=== PATIENT | male | born 1950 | race Caucasian/White ===

== ENCOUNTER 2017-03-17 07:54 | Day surgery (SDC) | payer OTHER ==
--- NOTE | 2017-03-03 08:17 | HP ---
CC: Dr. Jesús Segal * HISTORY AND PHYSICAL: DATE OF PLANNED ADMISSION AND SURGERY: 03/17/17 HISTORY OF PRESENT ILLNESS: Mr. Harvey is a 66-year-old white male who is admitted with suspicious bladder lesions for cystoscopy and excisional biopsies. I have been following Mr. Harvey since 1994 because of history of bladder tumors. 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 He had another recurrence in 2003 and at that time he received a 6-weeks' course of intravesical BCG. Since that time, he had been followed with periodic cystoscopies and the only abnormal finding was slight irregularity of the mucosa in the area of the right trigone. He has remained asymptomatic. He had his yearly surveillance cystoscopy earlier this month and there was a new finding of a flat hyperemic lesion in the right base of the bladder that was suspicious for flat transitional cell carcinoma. The patient is admitted for cystoscopy and bladder biopsies. Past urological history is otherwise negative. He has no significant obstructive voiding symptoms. He denies any episodes of gross hematuria or urinary tract infections. He is not bothered by his voiding. PAST MEDICAL HISTORY: He is in good health. He had a renal ultrasound last year and the only findings were bilateral simple renal cysts. MEDICATIONS: His only medication is omeprazole and muscle relaxant for his back. ALLERGIES: He reports having intolerance or allergy to ZITHROMAX. REVIEW OF SYSTEMS: He denies any cardiac or pulmonary diseases or symptoms. PHYSICAL EXAMINATION GENERAL: Pleasant, moderately overweight white male who looks his age. VITAL SIGNS: Blood pressure 130/80, pulse of 60. HEART: Regular and rhythmic. No murmurs. LUNGS: Clear. ABDOMEN: Soft, no masses, no tenderness and no CVA tenderness. EXTERNAL GENITALIA: Normal. RECTAL: Shows a moderately enlarged but non-suspicious prostate. IMPRESSION: Past history of bladder tumors with the new finding of a flat hyperemic irregular lesion measuring about 1 cm in the right face of the bladder and some irregularity of the bladder mucosa adjacent to the right ureteral orifice. PLAN: Cystoscopy and excisional biopsies of bladder lesions. I discussed the above plans with the patient. All his questions were answered. [id number]/CPS #: [id number] [facility]
[~2017-03-17 07:54] MED LIST: Acetaminophen TAB* 325 MG ONE; Acetaminophen TAB* 325 MG PO ONE; Buffered Lidocaine 0.9% SYRIN* 5 ML/SYR SYRINGE INTRADERM ONE; Dexamethasone IV* 4 MG/ML 1 ML (4 MG) IV SLOW PU ONE; Dexamethasone IV* 4 MG/ML 1 ML (4 MG) ONE; Famotidine IV* 10 MG/ML 2 ML (20 mg) IV ONE; Famotidine IV* 10 MG/ML 2 ML (20 mg) ONE; cefTRIAXone(*) 2 GM ADDV.VIAL IVPB ONE
[2017-03-17] MEDS ORDERED: Midazolam* 1 MG/ML 2 ML VIAL (2 MG) ONE (09:15)
[2017-03-17] MEDS ORDERED: fentaNYL* 50 MCG/ML 2 ML VIAL (100 MCG VIAL) ONE (09:15)
[2017-03-17] MEDS ORDERED: Propofol* 10 MG/ML 20 ML BTL IV PUSH ONE (09:15)
[2017-03-17] MEDS ORDERED: Lidocaine 2% PF * 5 ML VIAL ONE (09:15)
[2017-03-17] MEDS ORDERED: Ketorolac INJ* 30 MG/ML 1 ML VIAL IV PRN (10:00)
[2017-03-17] MEDS ORDERED: Ondansetron INJ* 2 MG/ML VIAL IV PRN (10:00)
[2017-03-17] MEDS ORDERED: oxyCODONE TAB* 5 MG TAB PO PRN (10:00)
[2017-03-17] MEDS ORDERED: fentaNYL* 50 MCG/ML 2 ML VIAL (100 MCG VIAL) IV PRN (10:00)
[2017-03-17] MEDS ORDERED: HYDROmorphone INJ* 1 MG/ML CARPUJECT SYRINGE IV PRN (10:00)
[2017-03-17] MEDS ORDERED: oxyCODONE/Acetamin 5/325 MG* TAB PO PRN (10:42)
[2017-03-17] MEDS ORDERED: mitoMYcin PWD* 40 MG in Sterile Water for Inj* 40 ML IRRIGATION ONE (11:45)
[2017-03-17 12:56] VITALS: BP 139/96
--- NOTE | 2017-03-18 03:39 | OP ---
CC: Dr. Jesús Segal * DATE OF OPERATION: 03/17/17 - [facility] DATE OF : 50 SURGEON: Alec Garcia MD ANESTHESIOLOGIST: Dottie Charles MD ANESTHESIA: General. PRE-OP DIAGNOSES: 1. Past history of bladder tumors. 2. Suspicious lesions, right base and right trigone. POST-OP DIAGNOSES: 1. Past history of bladder tumors. 2. Suspicious lesions, right base and right trigone. OPERATIVE PROCEDURE: 1. Cystoscopy. 2. Biopsies and fulguration of multiple flat bladder lesions of right base of bladder and right trigone. INDICATIONS: Mr. 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 He had one recurrence in 2003 and received intravesical BCG. He has been followed with yearly surveillance cystoscopies. His last cystoscopy showed new hyperemic lesions in the right base of the bladder and in the right trigone. Because of these findings, the patient admitted for bladder biopsies. PATHOLOGY AT CYSTOSCOPY: The penile and bulbar urethrae looked normal. The prostatic urethra was short and open with minimal obstruction. Examination of the bladder showed normal ureteral orifices. There was scarring in the right base of the bladder from previous bladder biopsies and fulgurations. There were flat, irregular hyperemic lesions located in the right base of the bladder superior to the Rt orifice and the trigone. There were also similar lesions distal to the trigone and the orifice closer to the bladder neck. The lesions were flat, looked mostly mucosal and superficial. They were nonpapillary. They represent either inflammatory changes, carcinoma in situ or noninvasive, flat transitional cell carcinoma. The rest of the bladder wall looked normal. There were no papillary lesions seen. No areas to suggest carcinoma in situ. No trabeculation, no calculi, and no diverticula. DESCRIPTION OF PROCEDURE: After successful general anesthesia, the patient was placed in the lithotomy position and was prepped and draped for a cystoscopy. Cystoscopy was performed. The bladder was carefully inspected and the above findings were noted. Because of the proximity of the lesions to the Rt urethral orifice, it was decided to excise them with the biopsy forceps, sparing the orifice rather than performing transurethral resection with the resectoscope, which will require stent placement. Using the biopsy forceps, multiple biopsies were obtained from the right base superior to the trigone and the Rt orifice and they were sent separately. Additional biopsies were obtained from the right trigone and the area distal to the right trigone and sent separately. The sites of the biopsies and the surrounding areas and all the suspicious residual areas were thoroughly fulgurated with a Bugbee electrode achieving very good hemostasis. At the completion of the procedure, there were no suspicious residual lesions seen. There was very good hemostasis. The right ureteral orifice was intact and clear efflux was seen coming from it. There was no bladder perforation noted. The cystoscope was then removed and size 18-Bahraini Andrew catheter was passed inside the bladder and the balloon inflated with 10 cc of water. The plan is to give the patient 1 dose of intravesical mitomycin-C in the PACU. [id number]/[facility] #: [id number] MTDD
== END 2017-03-17 13:01 | disposition home or self-care (01) ==
LOC: OR 07:54
PROVIDERS: ATTEND Urology
DX: C67.0 Malignant neoplasm of trigone of bladder (principal); K21.9 Gastro-esophageal reflux disease without esophagitis
CPT/HCPCS: 88305; A9270-GY; J0696; J1100; J2250; J2704; J3010; J9280

== ENCOUNTER 2017-09-21 07:34 | Emergency (ER) | payer OTHER ==
[2017-09-21 07:54] VITALS: BP 147/97
--- NOTE | 2017-09-21 08:00 | UC ---
Dizzy HPI HPI Summary: 66 yo male with the acute onset of vertigo about 5 AM No HOLCOMB no ear pain/ringing in ears No CP or SOB At one point he was profusely diaphoretic and his heart was racing n/v x 2 symptoms worse whne supine has bladder CA - History Of Current Complaint Chief Complaint: UCDizziness Stated Complaint: DIZZY Time Seen by Provider: 09/21/17 07:37 Hx Obtained From: Patient Onset/Duration: Sudden Onset Timing: Constant Severity Initially: Mild Severity Currently: Moderate Pain Intensity: 0 Pain Scale Used: 0-10 Numeric Character: Room Spinning Alleviating Factor(s): Nothing - worse when supine Associated Signs And Symptoms: Positive: Nausea, Vomiting, Diaphoresis, Palpitations, Unsteady Gait - Allergies/Home Medications Allergies/Adverse Reactions: Allergies Allergy/AdvReac Type Severity Reaction Status Date / Time azithromycin [From Zithromax] Allergy Rash Verified 09/21/17 07:48 PMH/Surg Hx/FS Hx/Imm Hx Previously Healthy: Yes Cancer History: Other Other Cancer History: BLADDER CA - Surgical History Surgical History: Yes Surgery Procedure, Year, and Place: 1994 TURB, 2003,. tonsillectomy, appendectomy, and gall bladder removed as a young person. REMOVED SMALL TUMORS IN BLADDER - Family History Known Family History: Negative: Cardiac Disease, Hypertension, Diabetes - Social History Alcohol Use: Occasionally Substance Use Type: None Smoking Status (MU): Former Smoker Amount Used/How Often: smoked on and off 20 years 1/2-1ppd When Did the Patient Quit Smoking/Using Tobacco: quit 25 years Review of Systems Constitutional: Negative Skin: Negative Eyes: Negative ENT: Negative Respiratory: Negative Cardiovascular: Palpitations Gastrointestinal: Vomiting, Nausea Genitourinary: Negative Motor: Negative Neurovascular: Negative Musculoskeletal: Negative Neurological: Negative Psychological: Negative Is Patient Immunocompromised?: No All Other Systems Reviewed And Are Negative: Yes Physical Exam Triage Information Reviewed: Yes Appearance: Well-Appearing, No Pain Distress Vital Signs: Initial Vital Signs Temp 97.5 F 09/21/17 07:44 Pulse 55 09/21/17 07:44 Resp 16 09/21/17 07:44 BP 147/97 09/21/17 07:44 Pulse Ox 99 09/21/17 07:44 Vital Signs Reviewed: Yes Eyes: Positive: Conjunctiva Clear, Other: - pupil 2-3 mm but reactive ENT: Positive: Hearing grossly normal, TMs normal. Negative: Nasal congestion, Nasal drainage, Trismus, Muffled voice, Hoarse voice, Dental tenderness Neck: Positive: Supple, Nontender, Other: - no bruit Respiratory: Positive: Lungs clear, Normal breath sounds, No respiratory distress, No accessory muscle use Cardiovascular: Positive: RRR, No Murmur, Bradycardia Abdomen Description: Positive: Nontender, No Organomegaly, CVA Tenderness (R), CVA Tenderness (L) Musculoskeletal: Positive: Strength Intact, ROM Intact, No Edema Neurological: Positive: Alert, Other: - cn2-12 intact/no nystagmus, strength 5/5 , dtrs symmetrical, gait unsteady Psychological Exam: Normal Skin Exam: Normal Diagnostics - EKG Cardiac Rate: Bradycardia Cardiac Rhythm: Sinus: Normal ST Segment: Normal - LAHB Dizzy Course/Dx - Course Course Of Treatment: Advised EMS transfer to [facility] ER as most prudent. He refused. His daughter who is a PA wishes to drive him. D/W Dr. Morillo - Differential Dx/Diagnosis Provider Diagnoses: vertigo. bradycardic Discharge - Sign-Out/Discharge Documenting (check all that apply): Discharge - Discharge Plan Condition: Guarded Disposition: TRANS HIGHER LVL OF CARE FAC Referrals: Jesús Segal MD [Primary Care Provider] - - Billing Disposition and Condition Condition: GUARDED Disposition: EMTALA
== END 2017-09-21 08:10 | disposition short-term general hospital (02) ==
LOC: UCEAST 07:34
DX: R42 Dizziness and giddiness (principal); R00.1 Bradycardia, unspecified; R11.2 Nausea with vomiting, unspecified; R26.81 Unsteadiness on feet; C67.9 Malignant neoplasm of bladder, unspecified; Z88.1 Allergy status to other antibiotic agents; Z87.891 Personal history of nicotine dependence
CPT/HCPCS: 93005; 99212; G0463

== ENCOUNTER 2017-09-21 08:26 | Observation (INO) | payer OTHER ==
[2017-09-21] MEDS ORDERED: Ondansetron INJ* 2 MG/ML VIAL IV ONE (08:35)
[2017-09-21 09:03] LABS: ABS Basophils 0 10^3/ul (0-0.2); ABS Eosinophils 0 10^3/ul (0-0.6); ABS Monocytes 0.4 10^3/ul (0-0.8); ABS Neutrophils 7.5 10^3/ul (1.5-7.7); ABS Nucleated RBC 0 10^3/ul; Eosinophil % 0.3 % (0-6); Hematocrit 43 % (42-52); Lymphocyte % 11.5 % (25-47); Mean Corpuscular HGB Conc 35 g/dl (31-36); Mean Corpuscular Hemoglobin 33 pg (27-31); Mean Corpuscular Volume 95 fL (80-94); Mean Platelet Volume 7.7 um3 (7.4-10.4); Nucleated Red Blood Cells % 0; Platelet Count 200 10^3/ul (150-450); Red Blood Count 4.57 10^6/ul (4.0-5.4); Red Cell Distribution Width 13 % (10.5-15); White Blood Count 8.9 10^3/ul (3.5-10.8)
--- NOTE | 2017-09-21 09:09 | RAD ---
INDICATION: Vomiting. Dizziness COMPARISON: July 27, 2013 TECHNIQUE: An AP portable view obtained at 0857 hours is submitted. FINDINGS: Bones/Soft Tissues: There are no acute bony findings. Cardiomediastinal: The cardiomediastinal silhouette is normal. Lungs: There are no infiltrates. Pleura: There are no pleural effusions. Other: None IMPRESSION: NO ACTIVE DISEASE.
[2017-09-21 09:15] LABS: INR 0.97 (0.77-1.02)
[2017-09-21 09:30] LABS: EGFR Non-African American 79.3 (>60)
--- NOTE | 2017-09-21 09:42 | RAD ---
INDICATION: Vertigo COMPARISON: None TECHNIQUE: Noncontrast axial source images were acquired from the skull base to the vertex. FINDINGS: Ventricles/sulci: The ventricles and cisterns are normal in size and configuration for age. Brain parenchyma: There is no focal parenchymal finding, evidence of intracranial mass, or intracranial mass effect. Intracranial hemorrhage:None. Extra-axial spaces: There are no abnormal extra axial fluid collections or evidence of extra-axial mass. Calvarium: There is no calvarial fracture or other calvarial abnormality. Scalp: There is no evidence of scalp or extracalvarial soft tissue abnormality. Paranasal sinuses/mastoid: The paranasal sinuses and mastoid air cells are clear. Other: None. IMPRESSION: No acute intracranial findings
[2017-09-21] MEDS ORDERED: Meclizine TAB* 12.5 MG PO ONE (10:57)
[2017-09-21] MEDS ORDERED: Ondansetron INJ* 2 MG/ML VIAL IV PRN (13:07)
[2017-09-21] MEDS ORDERED: Meclizine TAB* 12.5 MG PO PRN (13:07)
[2017-09-21] MEDS ORDERED: Acetaminophen TAB* 325 MG PO PRN (13:07)
[2017-09-21] MEDS ORDERED: Gadobenate* (CONTRAST) 529 MG/ML 10 ML SDV IV ONE (15:10)
--- NOTE | 2017-09-21 15:57 | RAD ---
HISTORY: Dizziness COMPARISONS: None TECHNIQUE: 3-D axial [id number]-[id number] MR angiography was performed of the head to include the [place] of [place]. Multiple 3-D maximum intensity projection reconstructions are also submitted for review. FINDINGS: RIGHT VERTEBRAL ARTERY: The distal right vertebral artery is unremarkable, without stenosis. LEFT VERTEBRAL ARTERY: The distal left vertebral artery is unremarkable, without stenosis. DOMINANCE: The vertebral arteries are codominant. DISTAL RIGHT CERVICAL INTERNAL CAROTID ARTERY: The distal right cervical internal carotid artery is unremarkable. DISTAL LEFT CERVICAL INTERNAL CAROTID ARTERY: The distal left cervical internal carotid artery is unremarkable. INTRACRANIAL CIRCULATION: There is no aneurysm, vascular malformation, occlusion, or stenosis of the visualized intracranial circulation. The anterior communicating artery complex is clear. Bilateral posterior communicating arteries are identified. OTHER FINDINGS: None IMPRESSION: NO ANEURYSM, VASCULAR MALFORMATION, OCCLUSION, OR STENOSIS OF THE VISUALIZED INTRACRANIAL CIRCULATION.
--- NOTE | 2017-09-21 16:16 | HP ---
CC: Dr. Segal; Dr. Marley * HISTORY AND PHYSICAL: DATE OF ADMISSION: 09/21/17 PRIMARY CARE PROVIDER: Dr. Segal. ATTENDING PHYSICIAN WHILE IN THE HOSPITAL: Kesha Morrell DO * (report dictated by Nilda Jin NP). CHIEF COMPLAINT: Dizziness. HISTORY OF PRESENT ILLNESS: Mr. Harvey is a 66-year-old male patient. He carries a history of bladder cancer. He comes into our emergency department today. He says that he woke up at 3 in the morning. He was feeling well. He went and made a cup of coffee. He had a couple of cups and then he was going back into his room as he was feeling tired. He noted that when he was walking down into his room, he had a sudden onset of dizziness, he felt like the room was spinning. He felt lightheaded. He became nauseated. He tried lying down hopeful this would make things better, it got a little bit better the dizziness. He was able to get up and go sit in the restroom as he felt nauseous. He had 1 episode of vomiting. He went back into his bed and when he lied down again, the dizziness got worse again. He was able to text his daughter who is a PA and then eventually call her. There was concern because his dizziness was not going away. It was going on, about 2 hours' worth of dizziness. The patient decided to go to the urgent care. He denied any trouble with vision. He said he had 2 episodes of vomiting. He said by the time he got into the ER here today, he noted that his gait was off. He said he was walking like he had too much, he said he felt very unsteady. He said over the weekend, he had a couple of episodes of dizziness like this which lasted 20 to 30 seconds, but he has never had vertigo symptoms. He denies any recent upper respiratory illnesses. No ear pain. He says that the position did not really affect this. He denied having facial drooping, slurring of the words, weakness to one side. He denied having any abdominal discomfort. No chest pain or shortness of breath. He had no calf pain or leg pain. He was concerned though because of the dizzy episode, came in to the ER, was evaluated here. The episodes by the time he was here was pretty much gone. He did get meclizine which did help him as well. There was concern because of the dizziness and the duration of it that this could represent possible TIA and we were asked to evaluate for admission. PAST MEDICAL HISTORY: Significant for bladder cancer. PAST SURGICAL HISTORY: He has had cystoscopies. HOME MEDICATIONS: 1. Vitamin B 1 tablet p.o. daily. 2. Advil 400 mg every 6 hours as needed. 3. Vitamin D 1000 units p.o. daily. ALLERGIES TO MEDICATIONS: Include AZITHROMYCIN. FAMILY HISTORY: Mother had a history of ovarian cancer, colon cancer. SOCIAL HISTORY: He is a former smoker, he quit in 1991. He does drink occasionally. Surrogate decision makers are his daughters. REVIEW OF SYSTEMS: There is no documented fever. He denied having any significant weight change. There was no double vision. There is no ear discharge. He denies having any rhinorrhea. No sore throat. No thyroid enlargement. Denies having any chest pain. There is no orthopnea. No nocturnal dyspnea. There was no abdominal pain. There was nausea with two episodes of vomiting. No dysuria, no frequency. There was no seizure, there was no loss of consciousness, no pruritus, and no skin ulcerations. Review of 14 systems completed, all others negative. PHYSICAL EXAMINATION GENERAL: At this time, Mr. Harvey is a 66-year-old male patient. He is sitting in the ED stretcher. He appears to be well nourished, well developed. He does not appear to be in any acute distress. VITAL SIGNS: Blood pressure 128/85, pulse 66, respirations 17, O2 saturation 97 %, temperature 96.3. HEENT: Head: Atraumatic, normocephalic. Eyes: EOMs are intact. Sclerae are anicteric and not pale. NECK: Supple. Throat: Oral mucosa appears to be moist. No oropharyngeal erythema. LUNGS: Clear to auscultation bilaterally. No wheezes, rales, or rhonchi. HEART: Sounds S1, S2. Regular rate and rhythm. No murmurs, rubs, or gallops. ABDOMEN: Soft, it was flat, nontender. Bowel sounds are present. EXTREMITIES: Pulses were 2+ throughout. He is moving all 4 extremities with 5/ 5 strength. NEUROLOGIC: The patient is awake, he is alert, he is oriented x3. His speech is clear. Svdkwb-hx-ligj intact bilaterally. Kmbr-qx-aefx intact bilaterally. Cranial nerves II through XII are intact. Tongue midline. No facial drooping. He had no gross focal deficits. SKIN: Intact. LABORATORY DATA/DIAGNOSTIC STUDIES: WBC of 8.9, RBC of 4.57, hemoglobin 15.0, hematocrit 43, platelet count 200,000. INR 0.97. Sodium 138, potassium 4.1, chloride 105, bicarb 25, BUN 18, creatinine 0.95, glucose 106, lactic 0.7, calcium 9.7, total bili 0.7, AST 21, ALT 22, alk phos 55. Troponin 0, repeat troponin was 0. He had an albumin of 4.6. He did have a brain CT obtained today. No acute intracranial findings were noted. He had a chest x-ray obtained today, impression: No active disease. There was EKG obtained today showing a sinus bradycardia, rate of 49, no ST elevations of T wave inversions were noted. I reviewed his previous EKG, it showed sinus bradycardia with a rate of 53. Old medical records reviewed. ASSESSMENT AND PLAN: Mr. Harvey is a 66-year-old male patient who has a history of bladder cancer only and a former smoker, coming into the ED today with complaints of dizziness. We were asked to evaluate for admission. He will be admitted under observation status for: 1. Dizziness: Etiology of this is unclear. It does sound like he has a vertigo, it is now resolved, but it is concerning how long this had lasted. My plan at this point, I did touch base with Dr. Marley who will be evaluating the patient. We will get an MRA of the head and neck in addition to his echo with bubble study. I did place the patient on aspirin. We will check lipid panel, A1c, place him on telemetry, check orthostatic blood pressures. Get an MRI of the brain with and without contrast due to the history of bladder cancer and we will continue to follow him closely. I did order neuro checks every 4 hours and we will continue to monitor. 2. History of bladder cancer: Follow with Dr. Garcia. 3. DVT prophylaxis: He will be placed on SCDs. 4. Code status: He is full code. 5. Fluid, electrolytes, nutrition. He can have a heart healthy diet. TIME SPENT: Time spent on the admission was 60 minutes, greater than half of the time was spent wqus-xa-kqlm with the patient, obtaining history and physical , the other half of the time was spent going over the plan of care with the patient and implementing the plan of care. I did discuss plan of care with my attending, Dr. Morrell, who is in agreement. NILDA JIN, PET CARETAKER [id number]/CPS #: [id number] TERA
--- NOTE | 2017-09-21 16:35 | RAD ---
INDICATION: Dizziness COMPARISON: None TECHNIQUE: Sagittal T1, axial T1, T2, susceptibility, FLAIR and diffusion-weighted images were obtained. In addition, axial, sagittal and coronal T1-weighted images were obtained following intravenous injection of 20 mL of ProHance contrast. FINDINGS: The ventricles, cisterns and sulci appear to be within normal limits. There are focal areas of increased signal intensity in T2-weighted images present within the subcortical and periventricular white matter most consistent with mild chronic small vessel ischemic changes. None of these T2 bright foci exhibit contrast enhancement on the postcontrast images. No other significant focal abnormality or mass effect is seen. No areas of restricted diffusion are present. There is no evidence for infarct or hemorrhage. The visualized portion of the paranasal sinuses and mastoid air cells appear clear. IMPRESSION: MR findings are consistent with chronic microvascular disease without acute intracranial abnormality.
--- NOTE | 2017-09-21 17:02 | RAD ---
CPT II Codes: 3100F HISTORY: Dizziness. COMPARISONS: None TECHNIQUE: The following sequences were obtained of the head and neck after localizing images: Stacked axial 2-D [id number]-[id number] MR angiography of the neck; 3-D axial [id number]-[id number]-qcdrqn MR angiography of the carotid bifurcations. Multiple 3-D maximum intensity projection reconstructions are submitted for review. Postcontrast angiographic images were acquired after the injection of 20 mL ProHance. FINDINGS: AORTA: The aortic arch is not well visualized secondary to technique and motion artifact. There is no obvious ostial or proximal stenosis of the cephalic great vessels. RIGHT VERTEBRAL ARTERY: The right vertebral artery is patent and without stenosis. There is in plane flow saturation artifact of the horizontal portion of the right vertebral artery. LEFT VERTEBRAL ARTERY: The left vertebral artery is patent, without stenosis. There is in plane flow saturation artifact of the horizontal portion of the left vertebral artery. RIGHT COMMON CAROTID ARTERY: The right common carotid artery is patent. RIGHT INTERNAL CAROTID ARTERY: Patent without large filling defect or other focal abnormality. Below the carotid bifurcation the common carotid artery measures 7 mm in diameter. At the carotid bulb the short axis diameter measurement measures just under 7 mm indicating 0% degree stenosis. LEFT COMMON CAROTID ARTERY: The left common carotid artery is patent. LEFT INTERNAL CAROTID ARTERY: Patent without large filling defect or other focal abnormality. Below the carotid bifurcation the common carotid artery measures 6 mm in diameter. At the carotid bulb the short axis diameter measurement measures just under 6 mm indicating 0% degree stenosis. IMPRESSION: 1. NORMAL NONCONTRAST MRA OF THE NECK. 2. DIAMETER MEASUREMENTS OF THE CAROTID ARTERIES INDICATE 0% DEGREE STENOSIS OF THE CAROTID BULBS ACCORDING TO [employer] CRITERIA.
[2017-09-22 06:35] LABS: ABS Basophils 0 10^3/ul (0-0.2); ABS Eosinophils 0.1 10^3/ul (0-0.6); ABS Lymphocytes 1.9 10^3/ul (1.0-4.8); ABS Monocytes 0.5 10^3/ul (0-0.8); ABS Neutrophils 3.4 10^3/ul (1.5-7.7); ABS Nucleated RBC 0 10^3/ul; Eosinophil % 1.9 % (0-6); Hematocrit 41 % (42-52); Hemoglobin 14.6 g/dl (14.0-18.0); Lymphocyte % 32.6 % (25-47); Mean Corpuscular HGB Conc 36 g/dl (31-36); Mean Corpuscular Hemoglobin 34 pg (27-31); Mean Corpuscular Volume 94 fL (80-94); Mean Platelet Volume 7.9 um3 (7.4-10.4); Nucleated Red Blood Cells % 0; Platelet Count 186 10^3/ul (150-450); Red Blood Count 4.35 10^6/ul (4.0-5.4); Red Cell Distribution Width 14 % (10.5-15); White Blood Count 5.9 10^3/ul (3.5-10.8)
[2017-09-22 06:55] LABS: EGFR Non-African American 69.1 (>60)
[2017-09-22] MEDS ORDERED: Aspirin 81 mg CHEW TAB* 81 MG TAB.CHEW PO SCH (09:00)
[2017-09-22] MEDS ORDERED: Vitamin B Complex TAB PO SCH (09:00)
[2017-09-22] MEDS ORDERED: Cholecalciferol TAB* 1000 UNITS PO SCH (09:00)
--- NOTE | 2017-09-22 12:23 | ECHO ---
Patient: VANESSA WOO [facility] Rec#: [id number] : 1950 Date: 09/22/2017 Age: 66y Height: 185.42 cm / 73.0 in Weight: 97.52 kg / 214.9 lbs Sex: M BSA: 2.22 Room#: 432 Admit Date#: 09/21/2017 Type: Inpatient Referring: Jarrett Jin NP Reading: Tanja Veras MD Captain Waiter: Gwen Sutton RDCS CC: Jesús Segal MD Transthoracic Echocardiogram Indication: Dizziness and giddiness, TIA BP: 96/55 HR: 61 Rhythm: NSR with PACs Findings History: Bladder cancer, former smoker. Technical Comments: The study quality is fair. The study is technically limited due to the patient's smoking history. Completed at 1030. Left Ventricle: The left ventricular chamber size is normal. Mild concentric left ventricular hypertrophy is observed. Global left ventricular wall motion and contractility are within normal limits. Left ventricular systolic function is at the lower limits of normal. The estimated ejection fraction is 50-55%. Abnormal left ventricular diastolic function is observed. Abnormal left ventricular diastolic filling is observed, consistent with impaired relaxation. Left Atrium: The left atrium is mildly dilated. Right Ventricle: The right ventricle is mildly dilated. The right ventricular global systolic function is normal. Right Atrium: The right atrium is moderately dilated. There is a patent foramen ovale with predominant [id number] shunting. A patent foramen ovale is demonstrated by color Doppler and agitated contrast. Aortic Valve: The aortic valve is trileaflet. The aortic valve leaflets are mildly thickened. There is no evidence of aortic regurgitation. There is no evidence of aortic stenosis. Mitral Valve: The mitral valve leaflets are mildly thickened. There is a trace of mitral regurgitation. There is no evidence of mitral stenosis. Tricuspid Valve: The tricuspid valve leaflets are normal. There is trace tricuspid regurgitation. The right ventricular systolic pressure is estimated at 22 mmHg. There is evidence that pulmonary hypertension may be underestimated. There is no tricuspid stenosis. Pulmonic Valve: The pulmonic valve appears normal. There is a trace pulmonic regurgitation. There is no pulmonic stenosis. Pericardium: There is no significant pericardial effusion. Aorta: There is mild dilatation of the ascending aorta. There is no dilatation of the aortic arch. There is mild dilatation of the aortic root. Pulmonary Artery: The main pulmonary artery appears normal. Venous: The inferior vena cava appears normal in size. There is a greater than 50% respiratory change in the inferior vena cava dimension. Contrast: Normal saline was used as contrast for the bubble study. Images 1 and 2. Intravenous contrast was used to help determine presence of intracardiac shunting. Conclusions Mild concentric left ventricular hypertrophy is observed. Global left ventricular wall motion and contractility are within normal limits. The estimated ejection fraction is 50-55%. Abnormal left ventricular diastolic filling is observed, consistent with impaired relaxation. The right ventricular global systolic function is normal. A patent foramen ovale is demonstrated by color Doppler and agitated contrast, early crossing of bubbles. The aortic valve leaflets are mildly thickened with good function. There is a trace of mitral regurgitation. There is trace tricuspid regurgitation. No prior echo to compare. Measurements Name Value Normal Range RVIDd (AP) 2D 3.5 cm (0.9 - 2.6) RVDdMajor (2D) 4.5 cm (2.2 - 4.4) RAd ISD 4CH 5.6 cm (3.4 - 4.9) RA (A4C)W 5.6 cm (2.9 - 4.6) IVSd (2D) 1.1 cm (0.6 - 1) LVPWd (2D) 1.1 cm (0.6 - 1) LVIDd (2D) 5.1 cm (3.6 - 5.4) LVIDs (2D) 3.4 cm - LV FS (2D) 34 % (25 - 45) Aortic Annulus 2.4 cm (1.4 - 2.6) Ao root diameter (2D) 3.8 cm (2.1 - 3.5) Ascending Ao 4 cm (2.1 - 3.4) Aortic arch 2.5 cm (1.8 - 3.4) LA dimension (AP) 2D 3.7 cm (2.3 - 3.8) LAd ISD 4CH 5.7 cm (2.9 - 5.3) LA ISD 4CH W 4.4 cm (2.5 - 4.5) Name Value Normal Range LA ESV SP 4CH (A/L) 65 ml - LA ESV SP 2CH (A/L) 74 ml - LA ESV BP (A/L) 74 ml - LA ESV BP (A/L) index 33 ml/m2 - LA ESV SP 4CH (MOD) 55 ml - LA ESV SP 2CH (MOD) 70 ml - Name Value Normal Range MV E-wave Vmax 0.37 m/sec - MV deceleration time 403.3 msec - MV A-wave Vmax 0.55 m/sec - MV E:A ratio 0.67 ratio - LV septal e' Vmax 0.06 m/sec - LV lateral e' Vmax 0.06 m/sec - LV E:e' septal ratio 6.17 ratio - LV E:e' lateral ratio 6.17 ratio - Name Value Normal Range AV Vmax 1.11 m/sec - AV VTI 27.54 cm - AV peak gradient 4.97 mmHg - AV mean gradient 2.69 mmHg - LVOT Vmax 0.78 m/sec - LVOT VTI 16.84 cm - LVOT peak gradient 2.47 mmHg - LVOT mean gradient 1.23 mmHg - DELMER Vmax 0.66 m/sec - Name Value Normal Range TR Vmax 2.2 m/sec - TR peak gradient 19 mmHg - RAP 3 mmHg - RVSP 22 mmHg - IVC diameter 2 cm - Name Value Normal Range PV Vmax 0.77 m/sec - PV peak gradient 2.37 mmHg -
[2017-09-22 14:44] VITALS: BP 122/81
--- NOTE | 2017-09-22 14:52 | RAD ---
HISTORY: Evaluate for DVT. No other history is provided. COMPARISONS: None relevant TECHNIQUE: Multiple transverse and longitudinal ultrasound images were obtained of the bilateral lower extremities from the level of the common femoral vein inferiorly through to the infrapopliteal veins using grayscale, color Doppler, and spectral Doppler imaging with and without compression and with augmentation. FINDINGS: VEINS: The venous system of the bilateral lower extremities is compressible throughout its course, with normal flow on color Doppler imaging and normal response to augmentation on spectral Doppler imaging. SOFT TISSUES: Unremarkable. OTHER FINDINGS: None. IMPRESSION: NO RIGHT LOWER EXTREMITY DEEP VEIN THROMBOSIS. NO LEFT LOWER EXTREMITY DEEP VEIN THROMBOSIS
--- NOTE | 2017-09-22 15:59 | CONS ---
CC: Dr. Segal * NEUROLOGY CONSULTATION: DATE OF CONSULTATION: 09/22/17 LOCATION: The patient is in 432. REQUESTING PROVIDER: Jarrett Jin NP. PRIMARY CARE DOCTOR: Dr. Segal. REASON FOR CONSULT: Vertigo. HISTORY OF PRESENT ILLNESS: Lazarus Harvey is a 66-year-old man with a history of recurrent bladder cancer, under the care of Dr. Garcia, as well as a remote history of smoking, who came into the emergency department yesterday morning with vertigo. He states that he woke up at 5 a.m. and got out of bed to make some coffee, but had been awake since 3 a.m. lying in bed. He made the coffee, went to the bathroom and urinated and then on his way back to bed he had the sudden onset of vertigo which he describes as a "psychedelic" room spinning sensation. He does not recall if the room was spinning in any particular direction and did not feel as though his eyes were moving. He did have gait unsteadiness with this as well, but was not pulled in any particular direction. He went back to bed and the most intense portion of this episode lasted about 10 minutes after which it waned, but he did not come back completely to baseline. He was able to lie on his back as the most comfortable position and then he had some subsequent episodes which were less intense than the initial episodes. These were not provoked by position changes. He did have some vomiting as well. About 30 minutes after this began, he contacted his daughter who is a physician preschool teacher assistant and then after about another hour they decided to go to urgent care, where it was recommended that he come to the ER for further evaluation. Again, he did note that his gait was unsteady and he was balancing himself on the granado when he arrived in the ER. He had essentially returned to his baseline within a couple of hours, but still felt some lightheadedness after that. Today he has a bit of a headache which he attributes to caffeine withdrawal since he did not have any caffeine yesterday nor yet today. He denies any associated dysarthria, diplopia, dysphasia with this episode. Similarly he did not have any extremity weakness or numbness. Otherwise, he denies any recent illnesses and states he has been feeling very well lately. With this episode he did have some fluttering in his chest, but denies any other episodes of palpitations, chest pain or missed beats. He has been under more stress lately as he has been going through a divorce for the past 6 to 7 years and has been living with one of his daughters for the past few years and has recently made the decision to move out into his own apartment which has caused some anxiety. He does snore at night and is not aware of any apneas. He does not feel particularly sleepy during the day. He denies any significant history of migraine headaches, though he did have some headaches for a period of about 2 years which he states was eventually attributed to excessive tobacco use as well as alcohol use, though he was never a very heavy drinker. PAST MEDICAL HISTORY: Bladder cancer diagnosed in 1991 with subsequent recurrences in the early and then again last year. He is undergoing BCG treatments and has had cystoscopies and surgery for this. HOME MEDICATIONS: 1. Vitamin B 1 tablet daily. 2. Advil every 6 hours as needed. 3. Vitamin D 1000 units daily. ALLERGIES: To AZITHROMYCIN. FAMILY HISTORY: Mother had ovarian cancer and colon cancer. 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 He is a former smoker started in 1969 and quit in 1991, though he states he was intermittent smoker over those years and his heaviest period of smoking was from 1984 to 1991 when he smoked about a pack a day. He drinks alcohol occasionally. REVIEW OF SYSTEMS: As per the HPI, otherwise negative. PHYSICAL EXAMINATION: Vital Signs: Temperature 97.5, blood pressure today is 137/80, heart rate 58, oxygen saturation 99% on room air. When he was initially admitted to the emergency department, his blood pressure was 162/96, and then mostly in the 140s and 150s. After that though, last night and this morning it was as low as 97/51. He did have orthostatic vital signs taken which were negative. On general examination, he is a pleasant man in no acute distress. He is obese. His heart is in regular rate and rhythm with no murmurs, rubs or gallops. Lungs are clear to auscultation bilaterally. Carotid reveals no bruits. His skin is intact. There is no joint erythema or swelling. On neurologic exam he is fully awake, alert and oriented. Speech is clear without dysarthria or aphasia. On cranial nerve examination, pupils are equal, round and reactive from 3 to 2 mm bilaterally. Versions are full without nystagmus. Preston are full to confrontation. Facial sensation and musculature is full and symmetric. Hearing is intact to finger rub. The palate elevates symmetrically and the tongue is midline. On motor examination, he has normal bulk and tone in the upper and lower extremities. Strength is full proximally and distally with no pronator drift. Reflexes are 2+ throughout with downgoing toes. Sensation intact to pinprick in the upper and lower extremities. Finger- to-nose intact without ataxia. LABORATORY DATA/DIAGNOSTIC STUDIES: CBC is overall unremarkable as is his INR. His glucose on admission yesterday was 106 and his CMP was otherwise normal. Hemoglobin A1c 5.0. Triglycerides 106. Total cholesterol 135, LDL 80, HDL 33.4. His noncontrast brain CT was normal. Head and neck angiogram were normal. His brain MRI was personally reviewed and shows multiple small foci of elevated T2/FLAIR signal in the white matter of the cerebral hemispheres bilaterally most consistent with chronic small vessel disease. There is no enhancement of these lesions. They are not characteristic of demyelinating lesions. His transthoracic echocardiogram showed an EF of 50% to 55% with mild concentric LVH and abnormal left ventricular diastolic function. The left atrium is mildly dilated as is the right ventricle. Right atrium is moderately dilated and there was evidence of PFO. IMPRESSION AND PLAN: Lazarus Harvey is a 66-year-old man with only a remote smoking history as a significant vascular risk factor who presented with 2 to 3 hour episode of vertigo,which was waxing and waning in quality yesterday. There were no other associated signs or symptoms with this vertigo aside from some gait imbalance. The time course and description of his vertigo is not highly suggestive of a peripheral process such as benign paroxysmal positional vertigo or vestibulitis. Though he described essentially isolated vertigo, transient ischemic attack is certainly high within the differential given the time course and resolution of symptoms and the fact that it was nonpositional in nature. He has been started on aspirin and I recommended that he continue this as an outpatient. His cholesterol studies are good as is his hemoglobin A1c. Given the presence of the patent foramen ovale on his TTE, I have recommended lower extremity Dopplers. We discussed the small vessel disease on his MRI which could be related to his previous smoking history and less likely his relatively mild headache history. Given the presence of snoring and this probable transient ischemic attack, I have also recommended a sleep study as an outpatient. Finally, given this transient ischemic attack in a relatively young patient without significant vascular risk factors, as well as his description of some fluttering in his chest during his episode of vertigo as an outpatient, I think he should have an outpatient cardiology consult for consideration of a loop recorder for longer-term cardiac monitoring. Thank you for this consultation. [id number]/[facility] #: [id number] TERA
--- NOTE | 2017-09-24 12:14 | DS ---
CC: Dr. Segal; Marcel Land MD; Gwen Marley MD DISCHARGE SUMMARY: DATE OF ADMISSION: 09/21/17 DATE OF DISCHARGE: 09/22/17 PRIMARY CARE PROVIDER: Dr. Segal. MY ATTENDING WHILE IN THE HOSPITAL: Marcel Land MD CONSULTING NEUROLOGIST: Gwen Marley MD PRIMARY DISCHARGE DIAGNOSES: 1. Transient ischemic attack. 2. Dizziness. SECONDARY DISCHARGE DIAGNOSIS: History of bladder cancer. STUDIES DONE WHILE IN THE HOSPITAL: Chest x-ray from 09/21/17 shows no active disease. Electrocardiogram from 09/21/17 shows normal sinus rhythm, incomplete right bundle- branch block, ear ly repolarization in V2 and V3. No hypertrophy or enlargement. Left axis deviation. Bradycardia, ra te of 49, QTC of 413. No other abnormalities. Repeat EKG shows no significant changes. Brain CT from 09/21/17 read as no acute intracranial findings. Brain MRI from 09/21/17 read as chito l findings consistent with chronic microvascular disease without acute intracranial abnormality. Hea d MRA from 09/21/17 read as no aneurysmal vascular malformation, occlusion or stenosis, but visualize d intracranial circulation. MRI from 09/21/17 read as normal non-contrast MRI of the neck, diameter measurements of the carotid a rteries indicate 0% degree of stenosis of the carotid bulbs according to the NASCET criteria. Transthoracic echocardiogram from 09/21/17 read as mild concentric left ventricular hypertrophy, glob al left ventricular wall motion and contractility within normal limits. Estimated ejection fraction 50% to 55% with normal left ventricular diastolic filling observed consistent with impaired relaxatio n. Right ventricular holosystolic function is normal. There is a PFO demonstrated by color Doppler and agitated contrast, The aortic valve leaflets are mildly thickened with good function. There is trace mitral regurgitation, there is trace tricuspid regurgitation. No prior echo to compare. Venous Doppler study from 09/22/17 read as no right lower extremity DVT and no left lower extremity D VT. MEDICATIONS AT DISCHARGE: 1. Vitamin B 1 tab p.o. q. a.m. 2. Ibuprofen 1400 mg p.o. q.6 hours as needed. 3. Vitamin D 1000 units p.o. daily. 4. Tylenol 650 mg p.o. q.4 hours as needed. 5. Aspirin 81 mg p.o. daily. New medications at discharge: 1. Tylenol. 2. Aspirin. HOSPITAL COURSE: This is a brief summary of the patient's presentation. For more details, please se e the history and physical from Jarrett Jin NP on 09/21/17. In brief, the patient is a 66-year-old male with past medical history significant for the above, who presented to the emergency department feeling well when he woke up about 3 a.m. He presented to the emergency department stating that afte r he woke up about 3 a.m. on the day of admission, he was feeling normal and had sudden onset of dizz iness, felt like the room was spinning, felt lightheaded and became nauseated. He sat down with slig ht improvement, vomited, then came to the emergency department at the encouragement of his daughter. He felt very unsteady. He had a couple of episodes like this over the weekend of dizziness, but no v ertigo symptoms. He had no other focal deficits. There was concern for TIA and the patient was admi tted to the hospital. The patient had numerous studies of his brain as above, which were negative. The patient had an echocardiogram read as above, which showed a PFO and negative venous Doppler studi es in his legs. The patient was seen in consultation by Dr. Gwen Marley. The patient's dizziness farah bsided overnight with only occasional dizziness upon standing, which was not accompanied by correspon ding orthostatic hypotension. Dr. Marley recommended aspirin and believed this represented a TIA. Hemal vázquez also recommended a long-term loop recorder be set up through his primary care provider or Cardiolog y. The patient was amenable for discharge on 09/22/17 to follow with his primary care doctor for sec ondary prevention of TIA and stroke. PHYSICAL EXAMINATION ON DAY OF DISCHARGE: General: The patient is a 66-year-old male, who appears s tated age and is sitting comfortably in the bed, in no acute distress. Vital signs at the time of di [place]; temperature 97.4, pulse rate 64, respiratory rate 17, oxygen saturation 96% on room air, blo od pressure 122/81. HEENT: Head normocephalic, atraumatic. Sclerae anicteric. No conjunctival inje ction. Nasal mucosa moist. Oral mucosa moist. No oropharyngeal erythema, discharge or exudate. Ne ck: Supple, nontender. No lymphadenopathy. No carotid bruits auscultated. Cardiac: Regular rate and rhythm. No clicks, murmurs, gallops or rubs. Pulses 2+ in the bilateral dorsalis pedis, posteri or tibialis and radial areas. No lower extremity edema or calf tenderness, swelling or palpable cord s noted. Respiratory: Clear to auscultation bilaterally. No wheezes, rales, or rhonchi. Good air exchange bilaterally. Abdomen: Soft, nontender, nondistended. Bowel sounds present, normoactive in all 4 quadrants. No hepatosplenomegaly or abdominal bruits auscultated. Genitourinary: No suprapu bic or CVA tenderness. Skin: Clean, dry, and intact. No rash. Neuro: Cranial nerves II through X II intact. No nystagmus. Strength appears to be 5/5 in bilateral upper and lower extremities distal ly and proximally. No sensory deficits. Reflexes 2+ in the bilateral brachial, patellar and Marcello s areas. Downgoing Babinski's bilaterally. Normal gait. Cerebellar testing performed without diffic ulty. DIAGNOSTIC STUDIES/LAB DATA: On the day of discharge, white blood cell count 5.9, hemoglobin 14.6. Sodium 141, potassium 4.3, chloride 106, carbon dioxide 26, anion gap 9, BUN 16, creatinine 1.07, glu cose 93, hemoglobin A1c 5.0, calcium 9.2. Triglycerides 106, cholesterol 135, LDL cholesterol 80, HDL cholesterol 33.4. Other abnormalities of note from admission, none. DISCHARGE PLAN: The patient will be discharged to home. The patient should follow up with his prima ry care provider within 1 week for general medical management and secondary prevention of TIA/stroke. The patient has been educated on the possibility of stroke related to his paradoxical embolus from his PFO. The patient will be started on aspirin. The patient will talk with his primary care provid er about setting up a Holter monitor to check for evidence of atrial fibrillation. The patient should have a heart healthy diet without caffeine. The patient should engage in activities as tolerated wi thout restriction. TIME SPENT: Approximately 60 minutes was spent on this discharge, 30 of which was spent [id number] with the patient obtaining history and physical and discussing treatment plan. CHAPITO GONZALEZ [id number]/[facility] #: [id number]
== END 2017-09-22 16:29 | disposition home or self-care (01) ==
LOC: ED 08:26 → MEDTELE 13:03
PROVIDERS: ADMIT Hospitalist; ATTEND Hospitalist
DX: R42 Dizziness and giddiness (principal); Z85.51 Personal history of malignant neoplasm of bladder; Z87.891 Personal history of nicotine dependence; Z79.899 Other long term (current) drug therapy; R00.1 Bradycardia, unspecified; I51.7 Cardiomegaly
CPT/HCPCS: 36415; 70450; 70544; 70549; 70553; 71045; 80048; 80053; 80061; 83036; 83605; 84484; 85025; 85610; 93005; 93306; 93970; 96374; 99284; A9270-GY; A9577; G0378; J2405